=== PATIENT | female | born 1960 | race Caucasian/White ===

== ENCOUNTER 2016-10-29 19:46 | Emergency (ER) | payer BC ==
[2016-10-29 19:59] VITALS: BP 112/71
--- NOTE | 2016-10-29 21:01 | UC ---
Lower Extremity/Ankle HPI - HPI Summary HPI Summary: R foot got caught between boat and dock earlier today. Has round area of marked bruising and swelling with abrasions to R foot over metatarsal area. No prior sx or fx. - History of Current Complaint Chief Complaint: UCLowerExtremity Stated Complaint: FOOT INJURY Time Seen by Provider: 10/29/16 20:45 Hx Obtained From: Patient ?: No Onset/Duration: Sudden Onset Severity Initially: Moderate Severity Currently: Moderate Aggravating Factor(s): Standing Alleviating Factor(s): Rest Able to Bear Weight: Yes - Allergies/Home Medications Allergies/Adverse Reactions: Allergies Allergy/AdvReac Type Severity Reaction Status Date / Time No Known Allergies Allergy Verified 10/29/16 19:59 Home Medications: Home Medications Ascorbic Acid TAB* [Vitamin C TAB*] 10/29/16 [History] Cholecalciferol [Vitamin D3] 1,000 unit PO 10/29/16 [History] Cyanocobalamin [Vitamin B 12] 10/29/16 [History] Ibuprofen TAB* [Advil TAB*] 400 mg PO PRN 10/29/16 [History] Lysine [Lysinyl] 10/29/16 [History] Multivitamin With [place]* 10/29/16 [History] Vitamin B Complex TAB* [Complex B-100*] 1 tab PO DAILY 10/29/16 [History Confirmed 10/29/16] PMH/Surg Hx/FS Hx/Imm Hx Previously Healthy: Yes - Surgical History Surgical History: Yes Surgery Procedure, Year, and Place: - Family History Known Family History: Negative: Seizure Disorder - Social History Lives: With Family Alcohol Use: Occasionally Substance Use Type: None Smoking Status (MU): Never Smoked Tobacco Review of Systems Constitutional: Negative Skin: Bruising Eyes: Negative ENT: Negative Respiratory: Negative Cardiovascular: Negative Gastrointestinal: Negative Genitourinary: Negative Motor: Negative Neurovascular: Negative Musculoskeletal: Arthralgia - R foot Neurological: Negative Psychological: Negative All Other Systems Reviewed And Are Negative: Yes Physical Exam Triage Information Reviewed: Yes Appearance: Well-Appearing, Well-Nourished Vital Signs: Initial Vital Signs Temp 98.1 F 10/29/16 19:54 Pulse 75 10/29/16 19:54 Resp 16 10/29/16 19:54 BP 112/71 10/29/16 19:54 Pulse Ox 99 10/29/16 19:54 Vital Signs Reviewed: Yes Eye Exam: Normal Eyes: Positive: Conjunctiva Clear ENT Exam: Normal ENT: Positive: Normal ENT inspection, Hearing grossly normal, Pharynx normal, TMs normal Dental Exam: Normal Neck exam: Normal Respiratory Exam: Normal Respiratory: Positive: Chest non-tender, Lungs clear, Normal breath sounds, No respiratory distress, No accessory muscle use Cardiovascular Exam: Normal Cardiovascular: Positive: RRR, No Murmur Musculoskeletal Exam: Other - R foot bruising and swelling over 3rd - 5th MTs Musculoskeletal: Positive: ROM Intact Neurological Exam: Normal Neurological: Positive: Alert Psychological Exam: Normal Skin Exam: Other - bruising to R foot Lower Extremity Course/Dx - Differential Dx/Diagnosis Provider Diagnoses: R foot crush injury. R foot hematoma Discharge - Discharge Plan Condition: Stable Disposition: HOME
--- NOTE | 2016-10-29 21:31 | RAD ---
Indication: Crush injury. Right foot pain. 3 views of the right foot demonstrates no definite fracture or dislocation. No other bone or joint abnormality is identified. IMPRESSION: No fracture of the foot is noted.
== END 2016-10-29 21:40 | disposition home or self-care (01) ==
LOC: UCEAST 19:46
DX: S90.31XA Contusion of right foot, initial encounter (principal); S97.81XA Crushing injury of right foot, initial encounter; W23.1XXA Caught, crushed, jammed, or pinched between stationary objects, initial encounter
CPT/HCPCS: 99212; G0463